=== PATIENT | male | born 1950 | race Caucasian/White ===

== ENCOUNTER → 2018-07-13 11:52 | Outpatient (CLI) | payer MEDICARE, OTHER, SELFPAY ==
[2018-07-13 11:03] VITALS: BMI 27.3
[2018-07-13 12:24] LABS: Erythrocyte Sedimentation Rate 73 mm/hr (0-20)
[2018-07-13 13:02] LABS: Rheumatoid Factor < 10.0 IU/mL (<15)
[2018-07-14 17:38] LABS: ANTINUCLEAR ANTIBODIES DIRECT Positive (Negative); Anti-Centromere B Ab <0.2 AI (0.0-0.9); Anti-Chromatin <0.2 AI (0.0-0.9); Anti-Jo <0.2 AI (0.0-0.9); Anti-Scleroderma-70 AB <0.2 AI (0.0-0.9); RNP Ab <0.2 AI (0.0-0.9); SJOGREN'S Anti-SS-A test < 0.2 AI (0.0-0.9); SJOGREN'S Anti-SS-B test 5.1 AI (0.0-0.9); Smith Ab <0.2 AI (0.0-0.9)
[2018-07-15 03:07] LABS: Cytoplasmic Ab (C-ANCA) <1:20 titer (Neg:<1:20)
[2018-07-15 15:01] LABS: CCP IgG Antibodies 199 units (0-19); Perinuclear Ab (P-ANCA) <1:20 titer (Neg:<1:20)
[2018-07-16 17:21] LABS: Anti-dsDNA Ab 1 IU/mL (0-9)
== END ==
PROVIDERS: Family Provider Physician Assistant Medical; PCP Physician Assistant Medical; Referring Provider Internal Medicine Critical Care Medicine; Visit Provider Internal Medicine Critical Care Medicine
DX: J84.10 Pulmonary fibrosis, unspecified (principal); Z72.0 Tobacco use
CPT/HCPCS: 36415; 85652; 86038; 86140; 86200; 86225; 86235; 86256; 86431

== ENCOUNTER → 2018-07-16 08:36 | Outpatient (CLI) | payer MEDICARE, OTHER, SELFPAY ==
[2018-07-13 11:03] VITALS: BMI 27.3
[2018-07-16 09:59] VITALS: PULSE 64; PULSE 65; PULSE 83; PULSE 86; PULSE 93; PULSE 94; PULSE 96; O2SAT 85; O2SAT 86; O2SAT 89; O2SAT 91; O2SAT 93; O2SAT 95
--- NOTE | 2018-07-16 10:03 | CPS ---
PATIENT DOES NOT HAVE OXYGEN AT HOME AT THIS TIME. HE REQUIRED OXYGEN AT 2 MIN INTO WALK FOR SPO2 85% RA. HE WAS RESTED AND O2 APPLIED AT 2LPM. WALK CONTINUED. AT 5 MIN, SPO2 WAS 86% ON 2LPM SO HE WAS RESTED AND FLOW INCREASED TO 3LPM FOR REMAINDER OF TESTING. PATIENT WAS OVERWHELMED AT HIS NEED FOR OXYGEN AT HOME. AFTER A LENGTHY DISCUSSION WITH PATIENT AND HIS , THEY WISH TO WAIT ON HAVING O2 SET UP AT HOME UNTIL DISCUSSING IT FURTHER OVER THE WEEKEND. THEY WILL CONTACT PMW OFFICE IF THEY DECIDE TO HAVE IT ORDERED PRIOR TO PT F/U APPT AT END OF JULY.
--- NOTE | 2018-07-18 10:01 | PCM.PSN.6M ---
PSN 6 Minute Walk Test - 6 Minute Walk Test 6 Minute Walk Test: 6 Minute Walk Test PSN:6-Minute Walk Test Start: 07/16/18 09:59 Freq: Status: Active Protocol: RESP.6MINW Document 07/16/18 09:59 [facility] (Rec: 07/16/18 10:11 [facility] [id number]) 6 Minute Walk Test Date Performed 07/16/18 Time Performed 09:00 Height 5 ft 11 in Weight: 190 lb Weight in Pounds 190.[address]: Riaz Pratt Assistive device used: None Pre-test Oxygen Delivery Method Room Air Pulse Ox (%) 95 Pulse Rate (60-100 beats/min) 64 Dyspnea Karen Scale (0-10) 4 Reported Symptoms Increased Work of Breathing 1st minute Oxygen Delivery Method Room Air Pulse Ox (%) 93 Pulse Rate (60-100 beats/min) 83 Dyspnea Karen Scale (0-10) 5 Reported Symptoms Increased Work of Breathing 2nd minute Oxygen Delivery Method Room Air Pulse Ox (%) 85 Pulse Rate (60-100 beats/min) 86 Dyspnea Karen Scale (0-10) 5 Number of Rests Taken 1 Reported Symptoms Cyanotic Increased Work of Breathing 3rd minute Oxygen Flow Rate (L/min) (L/min) 2 Oxygen Delivery Method Nasal Cannula Pulse Ox (%) 93 Pulse Rate (60-100 beats/min) 93 Dyspnea Karen Scale (0-10) 5 Reported Symptoms Increased Work of Breathing 4th minute Oxygen Flow Rate (L/min) (L/min) 2 Oxygen Delivery Method Nasal Cannula Pulse Ox (%) 91 Pulse Rate (60-100 beats/min) 94 Dyspnea Karen Scale (0-10) 5 Reported Symptoms Increased Work of Breathing 5th minute Oxygen Flow Rate (L/min) (L/min) 2 Oxygen Delivery Method Nasal Cannula Pulse Ox (%) 86 Pulse Rate (60-100 beats/min) 96 Dyspnea Karen Scale (0-10) 6 Number of Rests Taken 1 Reported Symptoms Cyanotic Increased Work of Breathing 6th minute Oxygen Flow Rate (L/min) (L/min) 3 Oxygen Delivery Method Nasal Cannula Pulse Ox (%) 89 Pulse Rate (60-100 beats/min) 93 Dyspnea Karen Scale (0-10) 6 Reported Symptoms Increased Work of Breathing Post-test Oxygen Delivery Method Room Air Pulse Ox (%) 93 Pulse Rate (60-100 beats/min) 65 Dyspnea Karen Scale (0-10) 4 Reported Symptoms Increased Work of Breathing Full Laps Walked 14 Partial Lap, Number of Tiles Walked 15 Total Distance Walked (ft) 841 07/16/18 10:03 Cardiopulmonary Services by Mireille Mendiola PATIENT DOES NOT HAVE OXYGEN AT HOME AT THIS TIME. HE REQUIRED OXYGEN AT 2 MIN INTO WALK FOR SPO2 85% RA. HE WAS RESTED AND O2 APPLIED AT 2LPM. WALK CONTINUED. AT 5 MIN, SPO2 WAS 86% ON 2LPM SO HE WAS RESTED AND FLOW INCREASED TO 3LPM FOR REMAINDER OF TESTING. PATIENT WAS OVERWHELMED AT HIS NEED FOR OXYGEN AT HOME. AFTER A LENGTHY DISCUSSION WITH PATIENT AND HIS , THEY WISH TO WAIT ON HAVING O2 SET UP AT HOME UNTIL DISCUSSING IT FURTHER OVER THE WEEKEND. THEY WILL CONTACT PMW OFFICE IF THEY DECIDE TO HAVE IT ORDERED PRIOR TO PT F/U APPT AT END OF JULY. Initialized on 07/16/18 10:03 - END OF NOTE - Interpretation Interpretation: The patient ambulated 841 feet over the course of 6 minutes beginning on room air without assistive devices or breaks. Pretesting oxygen saturation was noted to be 95% on room air. With ambulation, the patient desaturated to 85% at minute 2 of testing. 2 L/min of supplemental oxygen was applied. However, the patient again desaturated to 86% and minute 5 of testing. The supplemental oxygen flow rate was increased to 3 L/min and the patient was able to complete the remainder of the test. - Recommendations Recommendations: 3 L/min of supplemental oxygen should be utilized with exertion.
== END ==
PROVIDERS: Family Provider Physician Assistant Medical; PCP Physician Assistant Medical; Referring Provider Internal Medicine Critical Care Medicine; Visit Provider Internal Medicine Critical Care Medicine
DX: J84.10 Pulmonary fibrosis, unspecified (principal); Z72.0 Tobacco use
CPT/HCPCS: 94618

== ENCOUNTER → 2018-07-20 07:03 | Outpatient (CLI) | payer MEDICARE, OTHER, SELFPAY ==
[2018-07-13 11:03] VITALS: BMI 27.3
--- NOTE | 2018-07-20 07:58 | CT_ITS ---
STUDY: CT CHEST WITHOUT CONTRAST REASON FOR EXAM: Male, 67 years old. One-year history of cough. History of pulmonary fibrosis. RADIATION DOSAGE (If Supplied By Facility): CTDIvol = ( 20 ) mGy, DLP = ( 674.64 ) mGycm TECHNIQUE: Transaxial imaging was performed without the administration of intravenous contrast material. Multiplanar coronal and sagittal images were reformatted. Individualized dose optimization techniques were used for this CT. COMPARISON: None. FINDINGS: Small bilateral axillary lymph nodes. There is evidence of a increased interstitial markings involving both lungs with evidence of bronchiectasis and subpleural blebs worse in the upper lobes and left lower lung. There is a hyperexpansion of the right hemithorax with loss of volume in the left hemithorax. There is no demonstrated pleural abnormality. There are calcifications of the coronary arteries. Multiple small mediastinal lymph nodes. The largest is in the precarinal space and measures 1.7 cm. Normal hilar regions. Normal unenhanced pulmonary arteries. There is atherosclerotic calcification of the aortic arch . There are multi-level degenerative changes of the thoracic spine. There is no demonstrated abnormality of the visualized upper abdomen. CT/Chest without Contrast IMPRESSION: Pulmonary fibrosis involving both lungs as described. Mediastinal lymphadenopathy with the largest lymph node measuring 1.7 cm. Electronically Signed: Isaac Ledesma, at 15:13 EDT , Service support ,
--- NOTE | 2018-07-20 14:34 | PFTCOMP ---
COMPLETE PULMONARY FUNCTION TEST INTERPRETATION Brief HPI: Patient is a 67 year old male, currently under the care of myself, who presents to [facility] for complete pulmonary function tests secondary to diagnosis of pulmonary fibrosis. Respiratory therapist reports good effort and reproducible results. Interpretation: Forced expiration spirometry shows no large airways obstructive ventilatory defect with an FEV1 of 45% predicted. There is no significant bronchodilator response by strict ATS criteria. Spirograms are of good quality and plateau normally. The respiratory flow volume loop shows a normal pattern. Lung volumes by body plethysmography show a decreased total lung capacity at 3.2 L, 47% predicted. All other lung volumes are reduced symmetrically. Diffusion capacity by carbon monoxide is decreased at 49% predicted. The airway resistance is elevated. No previous pulmonary function tests were available for review. Impression: Severe restrictive ventilatory defect with symmetric reduction diffusion capacity
--- NOTE | 2018-07-20 14:37 | PFTCOMP_ITS ---
COMPLETE PULMONARY FUNCTION TEST INTERPRETATION Brief HPI: Patient is a 67 year old male, currently under the care of myself, who presents to [facility] for complete pulmonary function tests secondary to diagnosis of pulmonary fibrosis. Respiratory therapist reports good effort and reproducible results. Interpretation: Forced expiration spirometry shows no large airways obstructive ventilatory defect with an FEV1 of 45% predicted. There is no significant bronchodilator res ponse by strict ATS criteria. Spirograms are of good quality and plateau normally. The respiratory flow volume loop shows a normal pattern. Lung volumes by body plethysmography show a decreased total lung capacity at 3.2 L, 47% predicted. All other lung volumes are reduced symmetrically. Diffusion capacity by carbon monoxide is decreased at 49% predicted. The airway resistance is elevated. No previous pulmonary function tests were available for review. Impression: Severe restrictive ventilatory defect with symmetric reduction diffusion capacity
== END ==
PROVIDERS: Family Provider Physician Assistant Medical; PCP Physician Assistant Medical; Referring Provider Internal Medicine Critical Care Medicine; Visit Provider Internal Medicine Critical Care Medicine
DX: J84.10 Pulmonary fibrosis, unspecified (principal); Z72.0 Tobacco use
CPT/HCPCS: 71250; 94060; 94726; 94729

== ENCOUNTER → 2018-08-31 14:32 | Outpatient (CLI) | payer MEDICARE, OTHER, SELFPAY ==
[2018-08-11 06:29] VITALS: BMI 26.6
--- NOTE | 2018-08-31 14:37 | RAD_ITS ---
STUDY: X-RAY - PELVIS REASON FOR EXAM: Male, 67 years old. Rheumatoid arthritis TECHNIQUE: One view of the pelvis was obtained. COMPARISON: None. FINDINGS: There is a non-specific bowel gas pattern. Normal visualized soft tissue structures. Normal bilateral iliac wings, sacroiliac joints and visualized sacrum. Normal visualized bilateral superior and inferior pubic rami. Normal pubic symphysis. Normal ischial tuberosities. Is enthesopathy at the iliac crests. There are stable punctate ossific densities within the proximal bilateral femurs.. This may represent degenerative focus of sclerotic change versus a bilateral enchondromas. Normal visualized right femoral head. There is osteoarthritic spur formation of the right acetabular rim. Normal right hip joint. Normal visualized left femoral head. There is osteoarthritic spur formation of the left acetabular rim. Normal left hip joint. RAD/Pelvis 1 or 2 Views IMPRESSION: Degenerative change bilateral hip joints. No visualized acute fracture. There are symmetric punctate ossific densities within the proximal bilateral femurs. This may represent degenerative focus of sclerotic change versus a bilateral enchondromas. Electronically Signed: Jodie Reynoso MD at 22:45 EDT Tel , Service support ,
[2018-08-31 15:40] LABS: EXAGEN MAILED SPECIMEN
[2018-08-31 17:50] LABS: Erythrocyte Sedimentation Rate 62 mm/hr (0-20)
[2018-08-31 17:51] LABS: Color, Urine Yellow (Yellow); Glucose, Dipstick Normal (Normal); Ketone-Dipstick Negative (Negative); Leukocyte Esterase-Dipstick 25 /ul (Negative); Nitrite-Dipstick Negative (Negative); Occult Blood-Urine Negative /ul (Negative); Protein-Dipstick Negative (Negative); Urine Bilirubin Dipstick Negative (Negative); Urine Clarity Clear (Clear); Urine Urobilinogen 1 mg/dl (Normal)
[2018-08-31 17:52] LABS: Absolute Lymphocyte Count 3.07 X10^3/ul (0.83-4.51); Absolute Neutrophil Count 6.2 X10^3/uL (2.0-7.7); Basophil# 0.04 X10^3/uL; Basophil% 0.4 % (0-1); Eosinophil# 0.82 X10^3/uL; Eosinophils% 7.4 % (0-5); Hematocrit 46.1 % (40-54); Hemoglobin 15.7 g/dl (13.0-16.5); Lymphocyte # 3.07 X10^3/ul (4.0); Lymphocyte % 27.6 % (19-41); Mean Corp Hgb Conc 34.1 g/gl (32-36); Mean Corpuscular Hgb 31.8 pg (27.0-32.0); Mean Corpuscular Volume 93.5 fL (80-94); Mean Platelet Vol. 10.1 fl (6.2-12.0); Monocyte# 0.99 X10^3/uL; Monocyte% 8.9 % (0-10); Neutrophil # 6.15 X10^3/uL (2.7-7.7); Neutrophil % 55.3 % (47-70); Platelet Count 290 K/mm3 (150-450); RBC Distribution Width CV 13.4 % (11.6-14.6); RBC Distribution Width SD 45.8 fl (35.1-43.9); Red Blood Count 4.93 M/mm3 (4.6-6.2); White Blood Count 11.1 K/mm3 (4.4-11.0)
[2018-08-31 17:57] LABS: POSITIVE COUNT NO; POSITIVE DIFFERENTIAL NO; POSITIVE MORPHOLOGY NO
[2018-08-31 18:06] LABS: ALB/GLOB Ratio 0.6 RATIO (0.9-2.4); AST(SGOT) 25 U/L (15-37); Alanine Aminotransfer ALT/SGPT 25 U/L (16-61); Albumin, Serum 3.6 g/dL (3.2-5.0); Alkaline Phosphatase 132 U/L (45-117); Anion Gap 9 (5-15); BUN 19 mg/dL (7-18); BUN/Creat Ratio 16.4 RATIO (10-20); Calcium,Total 9.1 mg/dL (8.5-10.1); Chloride 103 mmol/L (98-107); Creatinine, Serum 1.16 mg/dL (0.70-1.30); EST Glomerular Filtration Rate 66 mL/min (>60); Est Glom Filt Rate - Afr Amer 80 mL/min (>60); Globulin 5.7 g/dL (2.2-4.2); Glucose 81 mg/dL (74-106); Potassium 4.3 mmol/L (3.5-5.1); Protein, Total 9.3 g/dL (6.4-8.2); Sodium Level 136 mmol/L (136-145)
[2018-08-31 18:24] LABS: Protein, Urine (Random) 18.8 mg/dL (<11.9); Protein:Creat Ratio 109 mg/g CRE (0-200)
[2018-09-02 11:28] LABS: HEPATITIS B SURFACE AG Negative (Negative); Hep B Surface Antibodies Non Reactive (.); Hep C Antibodies 0.1 s/co ratio (0.0-0.9)
== END ==
PROVIDERS: Family Provider Physician Assistant Medical; PCP Physician Assistant Medical; Referring Provider Internal Medicine Rheumatology; Visit Provider Internal Medicine Rheumatology
DX: M06.09 Rheumatoid arthritis without rheumatoid factor, multiple sites (principal); R76.8 Other specified abnormal immunological findings in serum; J84.10 Pulmonary fibrosis, unspecified; N40.0 Benign prostatic hyperplasia without lower urinary tract symptoms; N20.0 Calculus of kidney; E78.5 Hyperlipidemia, unspecified
CPT/HCPCS: 36415; 72170; 80053; 81002; 82570; 84156; 85025; 85652; 86140; 86706; 86803; 87340

== ENCOUNTER → 2019-02-15 | Outpatient (CLI) | payer MEDICARE, OTHER, SELFPAY ==
[2018-11-18 09:03] VITALS: BMI 25.1
--- NOTE | 2019-02-15 15:36 | PFTCOMP ---
COMPLETE PULMONARY FUNCTION TEST INTERPRETATION Brief HPI: Patient is a 68 year old male, currently under the care of myself, who presents to [facility] for complete pulmonary function tests secondary to diagnosis of pulmonary fibrosis. Respiratory therapist reports good effort and reproducible results. Interpretation: Forced expiration spirometry shows no large airways obstructive ventilatory defect with an FEV1 of 38% predicted. There is no significant bronchodilator response by strict ATS criteria. Spirograms are of good quality and plateau normally. The respiratory flow volume loop shows a normal pattern. Lung volumes by body plethysmography show a decreased total lung capacity at 3.24 L, 48% predicted. All other lung volumes are reduced symmetrically. Diffusion capacity by carbon monoxide is decreased at 40% predicted. The airway resistance is elevated. Compared to previous pulmonary function tests from 07/20/2018, significant worsening in FVC, FEV1 and DLCO by 17%, 17% and 22% respectively. Impression: Severe restrictive ventilatory defect with a symmetric reduction diffusing capacity and significant worsening compared to July 2018.
== END | disposition home or self-care (01) ==
LOC: PSN 09:37
PROVIDERS: Family Provider Physician Assistant Medical; PCP Physician Assistant Medical; Referring Provider Internal Medicine Critical Care Medicine; Visit Provider Internal Medicine Critical Care Medicine
DX: J84.10 Pulmonary fibrosis, unspecified (principal)
CPT/HCPCS: 94060; 94726; 94729

== ENCOUNTER → 2019-03-28 11:46 | Outpatient (CLI) | payer MEDICARE, OTHER, SELFPAY ==
[2019-02-21 06:18] VITALS: BMI 25.4
== END ==
PROVIDERS: Family Provider Physician Assistant Medical; PCP Physician Assistant Medical; Referring Provider Internal Medicine Rheumatology; Visit Provider Internal Medicine Rheumatology
DX: M06.09 Rheumatoid arthritis without rheumatoid factor, multiple sites (principal); M35.00 Sjogren syndrome, unspecified; N40.0 Benign prostatic hyperplasia without lower urinary tract symptoms; N20.0 Calculus of kidney; E78.5 Hyperlipidemia, unspecified; R76.8 Other specified abnormal immunological findings in serum; J84.10 Pulmonary fibrosis, unspecified
CPT/HCPCS: 36415